=== PATIENT | female | born 1975 | race Caucasian/White ===

== ENCOUNTER 2018-05-01 06:41 | Emergency (ER) | payer BC ==
--- NOTE | 2018-05-01 07:00 | EDPHY ---
HPI/HX/ROS/PE/MDM Narrative: CHIEF COMPLAINT: Atrial fibrillation HPI: This patient is a 43 year old female with history of catecholaminergic polymorphic tachycardia s/p AICD placement in 2016 and atrial fibrillation s/p ablation. She presents today following an episode of atrial fibrillation lasting about one hour which woke her from sleep at 5:20 this morning. This felt "like my heart was running wild around my chest". She felt weak and lightheaded. 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 She denies any chest pain. Currently, her symptoms have resolved and she is feeling well. She can not identify any known precipitating factors other than possible dehydration. She had about 8oz of wine, no other unusual substances or medications. She endorses feeling fatigued yesterday and has experienced mild shortness of breath recently. In the past, her symptoms have been exercise induced. She denies any pain or swelling in her calves. No fever, nausea, vomiting, numbness or paresthesias in her extremities, or other associated symptoms. REVIEW OF SYSTEMS: A comprehensive 10 system review of systems is otherwise negative aside from elements mentioned in the history of present illness and medical decision making. PMH: Atrial fibrillation, AICD placed. CPVT (catecholamine polymorphic ventricular tachycardia, based on clinical presentation and genetic study). History of VSD repair at 18 months old. SOCIAL HISTORY: Employed. , at bedside. Lives in [place]. Cardiologists: Dr. Ga, Dr. Landrum. PHYSICAL EXAM: General:Patient is alert, in no acute distress. ENT:Eyes are normal to inspection. ENT inspection normal. Neck: Normal inspection. Full range of motion. Respiratory:No respiratory distress. Breath sounds normal bilaterally. Cardiovascular: Regular bradycardia. Strong peripheral pulses. Normal cap refill. Abdomen:The abdomen is nontender to palpation. There are no peritoneal signs. There are normal bowel sounds. Back: Normal to inspection. No tenderness to palpation. Skin: Normal color. No rash. Warm and dry. Extremities: Normal appearance. Full range of motion. Neuro: Oriented x3. Normal motor function. Normal sensory function. ED Course: 43 year old female presents following an episode of possible atrial fibrillation lasting about one hour this morning. She currently feels well. Vitals are within normal limits. Plan for EKG. 07:00 EKG was ordered and interpreted by myself. Please see [facility] system for official reading. Atrial paced rhythm, rate 51. The patient remains completely asymptomatic. EKG shows normal paced rhythm. I offered discharge home vs. consult with cardiology to try to obtain records from her AICD vs. laboratory studies. The patient reports she had laboratory studies about one week ago with her [employer], Dr. Landrum, and declines repeat testing. She feels her symptoms were consistent with her prior episodes of atrial fibrillation and is comfortable following up with her [employer] in the outpatient setting. Plan to discharge home in good condition. Follow up and return precautions discussed. The patient is comfortable with this plan. General Time Seen by Provider: 05/01/18 06:58 Initial Vital Signs: Initial Vital Signs Temperature (C) 36.5 C 05/01/18 06:43 Heart Rate 53 L 05/01/18 06:43 Respiratory Rate 16 05/01/18 06:43 Blood Pressure 106/81 H 05/01/18 06:43 O2 Sat (%) 93 05/01/18 06:43 O2 Delivery Mode Room Air Allergies/Adverse Reactions: No Known Allergies Allergy (Unverified 06/26/14 11:14) Home Medications: Medication Instructions Recorded Multivitamins [Multivitamin (*)] 1 each PO DAILY 06/26/14 [place]-3 Fatty Acids [Fish Oil 1000 1,000 mg PO DAILY 06/26/14 mg (*)] Herbals/Supplements -Info Only 1 ea PO DAILY 02/12/16 Hydrocodone/APAP 5/325 [[place] 1 tab PO Q4 PRN #20 tab 02/13/16 5/325 (*)] Metoprolol Tartrate [Lopressor 25 12.5 mg PO BID #60 tab 02/13/16 mg (*)] Departure - Departure Disposition: Home, Routine, Self-Care Clinical Impression: Arrhythmia Qualifiers: Arrhythmia type: atrial fibrillation Atrial fibrillation type: paroxysmal Qualified Code(s): I48.0 - Paroxysmal atrial fibrillation Condition: Good Instructions: A-fib (Atrial Fibrillation) (ED) Additional Instructions: Follow up with your [employer] as soon as possible. Call today for an appointment and let the office know you were seen in the emergency department. You may wish to discuss a rescue medication for atrial fibrillation, e.g. Rythmol, with your [employer] waste [employer] leakage. Return to the emergency department for recurrent symptoms today or episodes lasting more than 10 minutes. Return if you develop chest pain, shortness of breath, fainting, or other worsening of condition or further concerns. Referrals: Karyna Landrum MD [Medical Doctor] - As per Instructions Report Scribed for: Musa Casey Report Scribed by: Elida Barney Date of Report: 05/01/18 Time of Report: 07:12 Physician Review and Approval Statement: Portions of this note were transcribed by an ED scribe. I personally performed the history, physical exam, and medical decision making; and confirm the accuracy of the information in the transcribed note.
[2018-05-01 07:52] VITALS: BP 100/63
--- NOTE | 2018-05-03 03:26 | CPEKG ---
Test Reason : OPEN Blood Pressure : / mmHG Vent. Rate : 051 BPM Atrial Rate : 051 BPM P-R Int : 115 ms QRS Dur : 081 ms QT Int : 403 ms P-R-T Axes : 088 055 089 degrees QTc Int : 372 ms Atrial-paced rhythm Probable LVH with secondary repol abnrm Confirmed by Selin Heck ([id number]) on 05/03/2018 3:25:47 AM Referred By: Confirmed By:Selin Heck
== END 2018-05-01 07:52 | disposition home or self-care (01) ==
DX: I48.0 Paroxysmal atrial fibrillation (principal); Z95.818 Presence of other cardiac implants and grafts